=== PATIENT | female | born 1975 | race Caucasian/White ===

== ENCOUNTER → 2016-11-14 | Outpatient (CLI) | payer OTHER | END | disposition home or self-care (01) | LOC: CFH 14:25 | PROVIDERS: ATTEND Nurse Practitioner Family | DX: N60.01 Solitary cyst of right breast (principal); N63 Unspecified lump in breast; Z80.41 Family history of malignant neoplasm of ovary | CPT/HCPCS: 76641; G0206 ==

== ENCOUNTER → 2017-11-16 | Outpatient (CLI) | payer OTHER | END | disposition home or self-care (01) | LOC: CFH 08:54 | PROVIDERS: ATTEND Nurse Practitioner Family | DX: Z12.31 Encounter for screening mammogram for malignant neoplasm of breast (principal) | CPT/HCPCS: 77067 ==

== ENCOUNTER → 2019-01-06 | Outpatient (CLI) | payer OTHER | END | disposition home or self-care (01) | LOC: CFH 09:57 | PROVIDERS: ATTEND Family Medicine | DX: Z12.31 Encounter for screening mammogram for malignant neoplasm of breast (principal) | CPT/HCPCS: 77067 ==

== ENCOUNTER 2019-06-10 11:04 | Outpatient (CLI) | payer OTHER ==
[2019-06-10] MEDS ORDERED: NONE PER PT (11:31)
[2019-06-10] MEDS ORDERED: COLLAGEN PEPTIDE PO (11:44)
[2019-06-10] MEDS ORDERED: PSYL174P2 PO (11:44)
== END 2019-06-10 23:59 | disposition home or self-care (01) ==
LOC: STAR 11:04
PROVIDERS: ATTEND Obstetrics & Gynecology
DX: Z02.9 Encounter for administrative examinations, unspecified (principal)

== ENCOUNTER 2019-06-15 13:50 | Day surgery (SDC) | payer OTHER ==
[~2019-06-15] VITALS: Ht 160 cm; Wt 81.5 kg
[~2019-06-15 13:50] MED LIST: COLLAGEN PEPTIDE PO; NONE PER PT; PSYL174P2 PO
[2019-06-15] MEDS ORDERED: LACTATED RINGERS 1,000 ML IV SCH (14:01)
[2019-06-15 14:41] LABS: BASOPHILS # (AUTO) 0.03 x10^3/uL (0-0.1); BASOPHILS % (AUTO) 1 % (0-1); EOSINOPHILS # (AUTO) 0.12 x10^3/uL (0-0.4); EOSINOPHILS % (AUTO) 2 % (1-7); LYMPHOCYTES % (AUTO) 32 % (22-44); MD NO; MEAN CORPUSCULAR HEMOGLOBIN 31.9 pg (27.0-34.8); MEAN CORPUSCULAR HGB CONC 32.8 g/dL (32.4-35.8); MEAN CORPUSCULAR VOLUME 97.2 fL (80-100); MONOCYTES # (AUTO) 0.25 x10^3/uL (0.2-0.8); MONOCYTES % (AUTO) 4 % (2-9); NEUTROPHILS # (AUTO) 3.47 x10^3/uL (1.8-6.8); NEUTROPHILS % (AUTO) 61 % (42-75); PLATELET COUNT 188 x10^3/uL (130-400); RED BLOOD COUNT 4.54 x10^6/uL (3.82-5.3); RED CELL DISTRIBUTION WIDTH 13.1 % (9.6-15.2)
[2019-06-15 14:52] LABS: ALANINE AMINOTRANSFERASE 28 U/L (12-78); ALBUMIN 3.5 g/dL (3.4-5.0); ANION GAP 5 mmol/L (5-15); CALCIUM 8.5 mg/dL (8.5-10.1); CHLORIDE 112 mmol/L (98-107)
[2019-06-15 14:56] LABS: ALKALINE PHOSPHATASE 62 U/L (45-117); BILIRUBIN,TOTAL 0.7 mg/dL (0.2-1.0); TOTAL PROTEIN 6.9 g/dL (6.4-8.2)
[2019-06-15] MEDS ORDERED: APREPITANT 40 MG CAPSULE PO ONE (15:01)
[2019-06-15 15:16] LABS: MICROSCOPIC NOT IND
[2019-06-15] MEDS ORDERED: MIDAZOLAM 1 MG/ML, 2ML ONE (15:22)
[2019-06-15] MEDS ORDERED: FENTANYL PF 250 MCG/5ML ONE (15:22)
[2019-06-15] MEDS ORDERED: BUPIVACAINE/PF 0.25% ONE (15:47)
[2019-06-15] MEDS ORDERED: ONDANSETRON 2MG/ML, 2ML ONE (15:54)
[2019-06-15] MEDS ORDERED: KETOROLAC 30 MG/1 ML ONE (15:54)
[2019-06-15] MEDS ORDERED: ROCURONIUM 10 MG/ML,10ML ONE (15:54)
[2019-06-15] MEDS ORDERED: DEXAMETHASONE 4 MG/ML, 1ML ONE (15:54)
[2019-06-15] MEDS ORDERED: CEFOTETAN 2 GM ONE (15:54)
[2019-06-15] MEDS ORDERED: PROPOFOL 10 MG/ML, 20ML ONE (15:54)
[2019-06-15] MEDS ORDERED: SUGAMMADEX 200 MG/2 ML IVPush ONE (15:54)
[2019-06-15] MEDS ORDERED: EPINEPHRINE 1 MG/ML, 1ML INFIL ONE (16:38)
[2019-06-15] MEDS ORDERED: FENTANYL PF 100 MCG/2ML IV PRN (17:30)
[2019-06-15] MEDS ORDERED: hydrALAzine 20 MG/ML, 1ML IV PRN (17:30)
[2019-06-15] MEDS ORDERED: HYDROmorphone 2 MG/ML, 1ML IVPush PRN (17:30)
[2019-06-15] MEDS ORDERED: OXYcodone 5 MG/5 ML ORAL.SOL UDC PO PRN (17:30)
[2019-06-15] MEDS ORDERED: MEPERIDINE/PF 25MG/ML,1ML IVPush PRN (17:30)
[2019-06-15] MEDS ORDERED: PROMETHAZINE 25 MG/ML, 1ML IV PRN (17:30)
[2019-06-15] MEDS ORDERED: ACETAMINOPHEN 325 MG TABLET PO PRN (17:30)
[2019-06-15] MEDS ORDERED: OXYcodone 5 MG/5 ML ORAL.SOL UDC ONE (17:46)
[2019-06-15] MEDS ORDERED: ACETAMINOPHEN 325 MG TABLET ONE (17:46)
[2019-06-15] MEDS ORDERED: ACETAMINOPHEN 650 MG/20.3 ML UDC ONE (17:46)
== END 2019-06-15 18:55 | disposition home or self-care (01) ==
LOC: OR 13:50
PROVIDERS: ATTEND Obstetrics & Gynecology
DX: Z30.2 Encounter for sterilization (principal); N83.8 Other noninflammatory disorders of ovary, fallopian tube and broad ligament; D27.0 Benign neoplasm of right ovary; N83.01 Follicular cyst of right ovary; Z88.5 Allergy status to narcotic agent; Z79.899 Other long term (current) drug therapy
CPT/HCPCS: 36415; 58661; 80053; 81003; 84703; 85025; 87086; 88302; 88305; J0171; J1100; J1885; J2250; J2405; J2704; J3010; J3490; J7120; J8501

== ENCOUNTER → 2021-02-11 | Outpatient (CLI) | payer OTHER | END | disposition home or self-care (01) | LOC: CFH 08:57 | PROVIDERS: ATTEND Family Medicine | DX: Z12.31 Encounter for screening mammogram for malignant neoplasm of breast (principal) | CPT/HCPCS: 77063; 77067 ==